=== PATIENT | female | born 1950 | race African-American/Black ===

== ENCOUNTER → 2017-01-19 | Outpatient (CLI) | payer MEDICARE, BC, OTHER | LOC: RAD 15:01 | PROVIDERS: ATTEND Internal Medicine | DX: H93.13 Tinnitus, bilateral (principal) | CPT/HCPCS: 82565; 70553; A9577 ==

== ENCOUNTER → 2017-03-30 | Outpatient (CLI) | payer MEDICARE, OTHER ==
[~2017-03-30] MED LIST: AMINOPHYLLINE INJ/PF 250 MG/10 ML SDV IV ONE; REGADENOSON INJ 0.4 MG/5 ML DISP.SYRIN IV ONE
--- NOTE | 2017-03-30 20:07 | DRAGON STRESS TEST REPORT ---
INTRAVENOUS LEXISCAN CARDIOLITE STRESS TEST USING SINGLE PHOTON EMMISION COMPUTERIZED TOMOGRAPHIC. DATE OF PROCEDURE: March 30, 2017 INDICATION : Chest pain CARDIAC RISK FACTORS: Hypertension RESTING EKG: Sinus rhythm, LVH with secondary ST-T wave changes STRESS EKG: No significant changes noted with LexiScan bolus REASON FOR TERMINATION: Protocol. PROCEDURE REPORT: Baseline heart rate 62 beats per minute with blood pressure of 109/78. Patient had no significant complaints. Heart rate at 2 minutes post bolus 75 with a blood pressure of 112/59. 3 minutes post bolus heart rate 72 with blood pressure of 129/54. No significant EKG changes were noted. Patient had no significant complaints during the procedure or postprocedure. Patient injected with Aminophyllin 75 mg at 3 minutes or later after Lexiscan bolus. CONCLUSIONS: Normal EKG and hemodynamic response to IV LexiScan. NUCLEAR DATA: At rest the patient was given 15.93 millicuries of technetium 99 sestamibi injected intravenously. As per protocol rest gated SPECT images were obtained. Subsequently the patient was given intravenous LexiScan at a dose of 0.4 mg in 5 mL intravenously, followed by flush with normal saline. Subsequently the stress dose of 47.3 millicuries of technetium 99 sestamibi was injected intravenously. As per protocol stress gated images were obtained. NUCLEAR INTERPRETATION: Both raw and processed data were used for interpretation. Visual, qualitative, computer-generated quantitative data was used. There was patchy myocardial uptake of technetium compound. Breast attenuation artifact noted. motion artifact and soft tissue attenuations were noted. Increased visceral uptake was noted. Decreased uptake noted in the mid anterior wall, consistent with probable mild ischemia but could well be related to differences in breast attenuation. No definitive areas of fixed perfusion defect or scars noted. EKG gated imaging showed LV EF at 60 %, rest and stress gated EF similar visually. No definite regional wall motion abnormalities were noted. T. I D. ratio was 1.07. Lung heart ratio noted to be within normal limits 0.22. No significant extracardiac and abnormal radiotracer activities were noted. RV free wall uptake was noted to be borderline increased. IMPRESSION: Also refer to comments under nuclear interpretation. Also test results needs to be interpreted in the context of pretest probability. 1. Probable mild Lexiscan induced ischemia in the mid anterior wall versus differences in breast attenuation artifact. Clinical correlation is requested. 2. There is no definitive scintigraphic evidence of myocardial infarction/scar. 3. EKG gated imaging shows left ejection fraction of approximately 60 %. 4. Clinical correlation requested as occasionally single vessel disease or balanced ischemia could be missed. In approximately 10% of the cases Lexiscan may not cause adequate vasodilatory stress. RECOMMENDATIONS: Aggressive risk factor modification, medical therapy. Consider heart catheterization if there are significant symptoms. Clinical correlation with echocardiogram derived ejection fraction. Inability to exercise by itself can lead to increased cardiovascular event risks. Consider cardiology consultation and or follow-up if clinically indicated. I AM AVAILABLE FOR CARDIOLOGY CONSULTATION AND FOLLOWUP IF REQUESTED BY PMD Shanti Kumar M.D., [employer] Surgical Attendant wet mix operator, Board certified in cardiovascular diseases, Nuclear cardiology, Echocardiography Cardiac CT and cardiac MRI Ph. [phone] [facility] HOSPITALDanay
== END ==
LOC: RAD 08:10
PROVIDERS: ATTEND Internal Medicine
DX: R07.9 Chest pain, unspecified (principal)
CPT/HCPCS: 93017; 78452; A9500; J2785; J0280; Q9969

== ENCOUNTER 2017-08-11 05:23 | Day surgery (SDC) | payer MEDICARE, OTHER, BC ==
[2017-08-07 11:24] LABS: HEMATOCRIT 40.8 % (36.0-47.0); HEMOGLOBIN 13.8 g/dL (12.0-15.5); MEAN CORPUSCULAR HEMOGLOBIN 30.7 pg (27.0-33.4); MEAN CORPUSCULAR HGB CONC 33.7 g/dL (32.0-36.0); MEAN CORPUSCULAR VOLUME 91 fl (80-97); PLATELET COUNT 194 10^3/uL (150-450); RED BLOOD COUNT 4.47 10^6/uL (3.72-5.28); RED CELL DISTRIBUTION WIDTH 14.6 % (11.5-14.0); WHITE BLOOD COUNT 4.9 10^3/uL (4.0-10.5)
[2017-08-07 11:59] LABS: ANION GAP 11 (5-19); BLOOD UREA NITROGEN 16 mg/dL (7-20); CALCIUM 9.4 mg/dL (8.4-10.2); CARBON DIOXIDE 34 mmol/L (22-30); CHLORIDE 98 mmol/L (98-107); GLUCOSE 102 mg/dL (75-110); POTASSIUM 3.7 mmol/L (3.6-5.0); SODIUM 142.8 mmol/L (137-145)
--- NOTE | 2017-08-07 13:26 | EKG REPORT ---
SEVERITY:- ABNORMAL ECG - SINUS RHYTHM MULTIPLE ATRIAL PREMATURE COMPLEXES LVH WITH SECONDARY REPOLARIZATION ABNORMALITY : Confirmed by: Ramon Valladares MD 07-Aug-2017 13:26:06
[~2017-08-11 05:23] MED LIST changes: -AMINOPHYLLINE INJ/PF 250 MG/10 ML SDV IV ONE; +CEFAZOLIN 1 GM/D5W RTU 1 GM/50 ML RTUPB IV PRN; +LACTATED RINGERS 1000 ML IV PRN; +LIDOCAINE 0.5% INJ-PF (5 MG/ML) 50 ML SDV SUBCUT PRN; -REGADENOSON INJ 0.4 MG/5 ML DISP.SYRIN IV ONE
[2017-08-11] MEDS ORDERED: FENTANYL CITRATE INJ/PF 100 MCG/2 ML AMPUL ONE (06:35)
[2017-08-11] MEDS ORDERED: KETAMINE HCL INJ 500 MG/10 ML VIAL ONE (06:35)
[2017-08-11] MEDS ORDERED: MIDAZOLAM 2 MG/2 ML INJ ONE (06:36)
[2017-08-11] MEDS ORDERED: PROPOFOL INJ 200 MG/20 ML VIAL IV ONE (06:36)
[2017-08-11] MEDS ORDERED: LIDOCAINE 1%/EPINEPHRINE INJ 20 ML VIAL ONE (06:38)
--- NOTE | 2017-08-11 06:42 | EKG REPORT ---
SEVERITY:- ABNORMAL ECG - SINUS RHYTHM SUPRAVENTRICULAR BIGEMINY LVH WITH SECONDARY REPOLARIZATION ABNORMALITY CONSIDER ANTERIOR INFARCT : Confirmed by: Ramon Valladares MD 11-Aug-2017 06:41:47
[2017-08-11] MEDS ORDERED: POTASSIUM CHLORIDE 10 MEQ TABLET.SA PO ONE (07:30)
[2017-08-11] MEDS ORDERED: POTASSIUM CHLORIDE 20 MEQ/15 ML UDCUP PO ONE ×2 (07:45→08:30)
[2017-08-11] MEDS ORDERED: FENTANYL CITRATE INJ/PF 100 MCG/2 ML AMPUL IV PRN ×3 (11:31)
[2017-08-11] MEDS ORDERED: DIPHENHYDRAMINE HCL 50 MG/ML VIAL IV PRN (11:31)
[2017-08-11] MEDS ORDERED: PROMETHAZINE HCL INJ 25 MG/1 ML VIAL IV PRN (11:31)
[2017-08-11] MEDS ORDERED: MORPHINE SULFATE 10 MG/ML INJ IV PRN (11:44)
[2017-08-11] MEDS ORDERED: RINGERS SOLUTION,LACTATED 1,000 ML IV PRN (11:44)
[2017-08-11] MEDS ORDERED: OXYCODONE-ACETAMINOPHEN 5-325 MG TABLET PO PRN (11:44)
--- NOTE | 2017-08-11 11:53 | Operative Report ---
Operative Report DATE OF SURGERY: 08/11/17 PREOPERATIVE DIAGNOSIS: Large lipoma left shoulder POSTOPERATIVE DIAGNOSIS: Same OPERATION: Complete excision of left shoulder lipoma SURGEON: DIONTE TERRY ANESTHESIA: LMAC TISSUE REMOVED OR ALTERED: Lipoma left shoulder COMPLICATIONS: None ESTIMATED BLOOD LOSS: Scant INTRAOPERATIVE FINDINGS: See below PROCEDURE: Patient was seen in the preop holding area with left shoulder was marked. Patient's post potassium replacement level was 3.8. Patient was cleared to undergo LMAC anesthesia. The patient was taken to the main operating room and also [facility] where she underwent LMAC anesthesia. She was placed in the right lateral decubitus position left side up in the left posterior lateral shoulder lipoma was exposed , prepped and draped in sterile fashion with Betadine. Surgical plan surgical timeout conducted Skin was anesthetized with 1% lidocaine without epinephrine. A 5-1/2 cm incision was made with a knife the subcutaneous tissue divided, and the subcutaneous lipoma which extended approximately 10 x 12 cm craniocaudad and laterally was removed in a piecemeal fashion. Specimens were sent collectively as lipoma left shoulder to pathology for permanent We checked the recesses of the wound and there was no evidence of bleeding. Wound closed in layers with 3-0 Vicryl benzoin and Steri-Strips. Compression dressing applied. Patient tolerated procedure well, taken recovery in stable condition.
--- NOTE | 2017-08-11 11:55 | PDOC DISCHARGE SUMMARY ---
Discharge Summary (SDC) - Discharge Final Diagnosis: Large lipoma left shoulder Date of Surgery: 08/11/17 Discharge Date: 08/11/17 Condition: Good Forms: ASU Anesthesia D/C Instruction, Discharge POC-Surgical Service Treatment or Instructions: Decreased range of motion left shoulder for 48 hours; removed bulky dressing in 48 hours and patient may shower Pain medication prescription on chart. Patient follow-up with [facility], FRANCISCA Cortes 1 -2 weeks. Referrals: DIONTE TERRY MD [ACTIVE STAFF] - 08/21/17 1:15 pm Discharge Activity: No Lifting Over 10 Pounds, No Lifting/Push/Pulling Home Care Assistance: None Needed Report the Following to Your Physician Immediately: Shortness of Breath, Increase in Pain, Fever over 101 Degrees
[2017-08-11] MEDS ORDERED: LIDOCAINE 2% INJ-PF (20 MG/ML) 2 ML AMPUL ONE (13:47)
[2017-08-11 14:00] VITALS: BP 111/64
== END 2017-08-11 13:20 | disposition home or self-care (01) ==
LOC: OROUT 05:23
PROVIDERS: ATTEND Surgery
PROC: 0JBF0ZZ Excision of Left Upper Arm Subcutaneous Tissue and Fascia, Open Approach (ICD-10-PCS; 2017-08-11)
PROC: 0JQH0ZZ Repair Left Lower Arm Subcutaneous Tissue and Fascia, Open Approach (ICD-10-PCS; principal; 2017-08-11 07:30)
DX: D17.22 Benign lipomatous neoplasm of skin and subcutaneous tissue of left arm (principal); I10 Essential (primary) hypertension; Z79.899 Other long term (current) drug therapy; Z79.82 Long term (current) use of aspirin
CPT/HCPCS: 23071; 93005 ×2; 36415 ×2; 84132; 85027; 80048; 88305 ×2; 93010 ×2; J2250; J0690; J3010; J3490 ×3; A9270; J2704; 300

== ENCOUNTER → 2017-10-11 | Outpatient (CLI) | payer MEDICARE, OTHER ==
--- NOTE | 2017-10-11 15:31 | RADIOLOGY REPORT (SQ) ---
EXAM DESCRIPTION: CAROTID DOPPLER COMPLETED DATE/TIME: 10/11/2017 10:46 am REASON FOR STUDY: TIA G45.9 TRANSIENT CEREBRAL ISCHEMIC ATTACK, UNSPECIFIED COMPARISON: None. TECHNIQUE: Grayscale ultrasound, Doppler velocity and spectra, and color Doppler images acquired of the extra-cranial carotid and vertebral arteries. Images stored on PACS. LIMITATIONS: None. FINDINGS: RIGHT CAROTID CCA Velocities: Within normal limits. ICA Velocities Peak systolic 1.32 m/s. End diastolic 0.52 m/s. Proximal ICA/CCA peak systolic ratio 1.2. Spectra normal. No significant plaque. LEFT CAROTID CCA Velocities: Within normal limits. ICA Velocities Peak systolic 1.43 m/s. End diastolic 0.46 m/s. Proximal ICA/CCA peak systolic ratio 1.7. Spectra normal. No significant plaque. VERTEBRAL ARTERIES: Antegrade flow. Normal waveforms. SUBCLAVIAN ARTERIES: Not imaged. OTHER: No other significant finding. IMPRESSION: 50- 69% stenosis of both internal carotid arteries, closer to 50%. COMMENT: Quality ID #[id number]: Velocity criteria are extrapolated from the diameter data as defined by t he Society of Radiologists in Ultrasound Consensus Conference. Radiology 2003: 229; 340-346. TECHNICAL DOCUMENTATION: JOB ID: [id number] [employer]- All Rights Reserved
== END ==
LOC: SP 09:41
PROVIDERS: ATTEND Internal Medicine
DX: G45.9 Transient cerebral ischemic attack, unspecified (principal)
CPT/HCPCS: 93880